=== PATIENT | male | born 1975 | race Asian ===

== ENCOUNTER 2021-06-15 09:32 | Day surgery (SDC) | payer OTHER, SELFPAY ==
[~2021-06-15] VITALS: Ht 154.9 cm; Wt 67.1 kg
[2021-06-15] MEDS ORDERED: fentaNYL citrate 0.05 MG/ML VIAL ONE (11:59)
[2021-06-15] MEDS ORDERED: LIDOCAINE 2% 100 MG/5 ML UJET TP ONE (11:59)
[2021-06-15] MEDS ORDERED: fentaNYL citrate 0.05 MG/ML VIAL IVP ONE (12:25)
== END 2021-06-15 13:00 | disposition home or self-care (01) ==
LOC: MDS 09:32 → MMU 10:07 → MDS 13:00
PROVIDERS: ATTEND Internal Medicine Gastroenterology
DX: Z12.11 Encounter for screening for malignant neoplasm of colon (principal); I10 Essential (primary) hypertension; E78.5 Hyperlipidemia, unspecified; F17.210 Nicotine dependence, cigarettes, uncomplicated; Z79.899 Other long term (current) drug therapy; Z20.822 Contact with and (suspected) exposure to COVID-19
CPT/HCPCS: 45378; 87426; J3010